=== PATIENT | female | born 1945 | race Caucasian/White ===

== ENCOUNTER 2021-07-07 11:20 | Outpatient (CLI) | payer MEDICARE | END 2021-07-07 11:21 | disposition home or self-care (01) | LOC: BICMAMMO 11:20 | PROVIDERS: ATTEND Internal Medicine | DX: Z12.31 Encounter for screening mammogram for malignant neoplasm of breast (principal); Z85.41 Personal history of malignant neoplasm of cervix uteri | CPT/HCPCS: 77063; 77067 ==

== ENCOUNTER 2022-08-18 10:58 | Outpatient (CLI) | payer MEDICARE | END 2022-08-18 10:59 | disposition home or self-care (01) | LOC: BICMAMMO 10:58 | PROVIDERS: ATTEND Internal Medicine | DX: Z12.31 Encounter for screening mammogram for malignant neoplasm of breast (principal); Z85.41 Personal history of malignant neoplasm of cervix uteri | CPT/HCPCS: 77063; 77067 ==

== ENCOUNTER 2023-03-21 00:11 | Inpatient (IN) | payer MEDICARE ==
[2023-03-21] MEDS ORDERED: Morphine 2 MG/ML VIAL ONE (01:05)
[2023-03-21] MEDS ORDERED: Ketorolac Tromethamine 30 MG/ML VIAL ONE (01:27)
[2023-03-21] MEDS ORDERED: Morphine 2 MG/ML VIAL SLOW IVP PRN (02:37)
[2023-03-21] MEDS ORDERED: Ondansetron PF 4 MG/2 ML Vial IVP PRN (02:37)
[2023-03-21] MEDS ORDERED: traMADol HCl 50 MG TAB PO PRN (02:38)
[2023-03-21] MEDS ORDERED: Ondansetron ODT 4 MG TAB PO PRN (02:38)
[2023-03-21] MEDS: traMADol HCl 50 MG TAB PO SCH ×4 (02:51→21:23)
[2023-03-21] MEDS: Acetaminophen 325 MG TAB PO SCH ×4 (02:54→21:15)
[2023-03-21] MEDS ORDERED: Dextrose 5% in Water 1,000 ML IV PRN (06:41)
[2023-03-21] MEDS ORDERED: Dextrose 50% Abboject 50 ML SYRINGE SLOW IVP PRN (06:41)
[2023-03-21] MEDS ORDERED: Glucagon 1 MG/ML KIT IM PRN (06:41)
[2023-03-21] MEDS ORDERED: Ipratropium/Albuterol 3 ML NEB NEB SCH (07:00)
[2023-03-21 07:13] LABS: Anion Gap 13 mmol/L (10-20); BUN (Urea Nitrogen) 17 mg/dL (9.8-20.1); Calc. Creatinine Clearance 0 mL/min (70-130); Calcium 8.4 mg/dL (7.8-10.44); Carbon Dioxide 24 mmol/L (23-31); Chloride 109 mmol/L (98-107); Estimated GFR 84; Glucose 107 mg/dL (83-110); Potassium 3.8 mmol/L (3.5-5.1); Sodium 142 mmol/L (136-145)
[2023-03-21] MEDS ORDERED: Sodium Chloride 0.9% 1,000 ML IV SCH (07:15)
[2023-03-21 08:20] VITALS: BMI 23.9
[2023-03-21] MEDS ORDERED: Gabapentin 100 MG CAP PO SCH (09:00)
[2023-03-21] MEDS: Senokot S 8.6-50 MG TAB PO SCH ×2 (09:18→20:14)
[2023-03-21] MEDS: Cyclobenzaprine 10 MG TAB PO PRN ×2 (12:07→21:22)
[2023-03-21] MEDS: Ipratropium/Albuterol 3 ML NEB NEB SCH ×2 (13:27→19:31)
[2023-03-21] MEDS: Gabapentin 100 MG CAP PO SCH (21:15)
[2023-03-21 23:54] LABS: Bacteria/HPF None Seen HPF (None Seen); Bilirubin Negative (Negative); Blood, Urine Negative (Negative); CAUTI Indications for Culture Alt mental st,lethar; Calcium Oxalate Crystals 3+ HPF (None Seen); Clarity Clear (Clear); Glucose, Urine (Dipstick) Normal (Negative); Ketone, Urine Negative (Negative); Leukocyte 75 Leu/uL (Negative); Nitrite Negative (Negative); Protein, Urine (Dipstick) 20 mg/dL (Neg-Trace); RBC/HPF 0-3 HPF (0-3); Specific Gravity, Urine 1.038 (1.002-1.036); Squamous Epithelial 0-3 HPF (0-3); Transitional Epithelial 0-3 HPF (None Seen); Urobilinogen Normal mg/dL (Less than 2); WBC/HPF 21-50 HPF (0-3); pH, Urine 5.5 (5.0-9.0)
[2023-03-21 23:57] LABS: Urine Culture Reflex Yes Yes
[2023-03-22] MEDS: Acetaminophen 325 MG TAB PO SCH ×4 (03:15→20:27)
[2023-03-22] MEDS: traMADol HCl 50 MG TAB PO SCH ×4 (03:16→20:27)
[2023-03-22] MEDS: Gabapentin 100 MG CAP PO SCH ×3 (05:18→20:28)
[2023-03-22] MEDS: Cyclobenzaprine 10 MG TAB PO PRN (05:18)
[2023-03-22 07:54] LABS: #Basophils 0.1 thou/uL (0.0-0.2); #Eosinphils 0.2 thou/uL (0.0-0.7); #Monocytes 0.5 thou/uL (0.11-0.59); #Neutrophils 3.4 thou/uL (1.40-6.50); %Basophils 1.1 % (0.0-1.0); %Lymphocytes 26.1 % (21.0-51.0); %Monocytes 9.5 % (0.0-10.0); %Neutrophils 59.9 % (42.0-75.0); Hematocrit 35.8 % (36.0-47.0); Hemoglobin 11.5 g/dL (12.0-16.0); Mean Corpuscular HGB CONC 32.1 g/dL (32.0-36.0); Mean Corpuscular Hemoglobin 31.3 pg (27.0-31.0); Mean Corpuscular Volume 97.3 fl (78.0-98.0); Mean Platelet Volume 9.6 fL (7.4-10.4); Platelet Count 207 10x3/uL (130-400); RBC Distribution Width 13.9 % (11.5-14.5); Red Blood Cell (RBC) Count 3.68 mill/uL (4.20-5.40); White Blood Cell (WBC) Count 5.6 10x3/uL (4.8-10.8)
[2023-03-22] MEDS: Ipratropium/Albuterol 3 ML NEB NEB SCH ×3 (07:55→18:45)
[2023-03-22] MEDS ORDERED: cefTRIAXone\\ROCEPHIN 1 GM in Sodium Chloride 0.9% 100 ML IVPB SCH (08:00)
[2023-03-22 08:04] LABS: Anion Gap 10 mmol/L (10-20); BUN (Urea Nitrogen) 19 mg/dL (9.8-20.1); Calc. Creatinine Clearance 65 mL/min (70-130); Carbon Dioxide 25 mmol/L (23-31); Chloride 107 mmol/L (98-107); Potassium 3.9 mmol/L (3.5-5.1); Sodium 138 mmol/L (136-145)
[2023-03-22 08:05] LABS: Calcium 8.6 mg/dL (7.8-10.44); Estimated GFR 89; Glucose 94 mg/dL (83-110)
[2023-03-22] MEDS: Senokot S 8.6-50 MG TAB PO SCH ×2 (08:53→20:27)
[2023-03-22] MEDS: Hydrochlorothiazide 25 MG TAB PO SCH (08:53)
[2023-03-22] MEDS: Sulfameth/Trimethoprim DS 800-160mg TAB PO SCH ×2 (11:26→20:28)
[2023-03-23] MEDS: Gabapentin 100 MG CAP PO SCH ×3 (04:36→22:01)
[2023-03-23] MEDS: Acetaminophen 325 MG TAB PO SCH ×4 (04:36→21:59)
[2023-03-23] MEDS: traMADol HCl 50 MG TAB PO SCH ×4 (04:37→22:00)
[2023-03-23] MEDS: Ipratropium/Albuterol 3 ML NEB NEB SCH ×4 (07:43→18:23)
[2023-03-23] MEDS: Senokot S 8.6-50 MG TAB PO SCH ×2 (09:47→22:00)
[2023-03-23] MEDS: Hydrochlorothiazide 25 MG TAB PO SCH (09:47)
[2023-03-23] MEDS: Sulfameth/Trimethoprim DS 800-160mg TAB PO SCH ×2 (09:48→22:01)
[2023-03-24] MEDS: traMADol HCl 50 MG TAB PO SCH ×2 (03:38→08:48)
[2023-03-24] MEDS: Acetaminophen 325 MG TAB PO SCH ×2 (03:39→08:49)
[2023-03-24] MEDS: Gabapentin 100 MG CAP PO SCH ×2 (05:52→14:17)
[2023-03-24] MEDS: Cyclobenzaprine 10 MG TAB PO PRN (05:55)
[2023-03-24] MEDS: Ipratropium/Albuterol 3 ML NEB NEB SCH (07:12)
[2023-03-24] MEDS: Sulfameth/Trimethoprim DS 800-160mg TAB PO SCH (08:48)
[2023-03-24] MEDS: Hydrochlorothiazide 25 MG TAB PO SCH (08:49)
[2023-03-24] MEDS: Senokot S 8.6-50 MG TAB PO SCH (08:49)
[2023-03-24 11:46] VITALS: BP 146/81; TEMP 97.7
[2023-03-24] MEDS ORDERED: Magnesium Citrate 300 ML BOT PO SCH (12:00)
== END 2023-03-24 14:44 | DRG 565 ==
LOC: ERS 00:11 → SJJU 01:21 → OBSVTOIN 06:41
PROVIDERS: ADMIT Specialist; ATTEND Specialist
DX: S42.115A Nondisplaced fracture of body of scapula, left shoulder, initial encounter for closed fracture (principal); S22.42XA Multiple fractures of ribs, left side, initial encounter for closed fracture; W18.30XA Fall on same level, unspecified, initial encounter; I10 Essential (primary) hypertension; Z90.710 Acquired absence of both cervix and uterus; Z98.890 Other specified postprocedural states; E78.00 Pure hypercholesterolemia, unspecified
CPT/HCPCS: 36415; 71045; 80048; 81001; 82607; 85025; 87086; 93005; 94640; 96374; 96375; G0378; J0696; J1650; J1885; J2272; J3490; J7050; J7620

== ENCOUNTER 2024-02-16 12:56 | Inpatient (IN) | payer MEDICARE ==
[2024-02-16 14:56] LABS: #Basophils Less than 0.03 10x3/uL (0.0-0.2); #Eosinphils Less than 0.03 10x3/uL (0.0-0.7); %Basophils 0.3 % (0.0-1.0); %Eosinophils 0.3 % (0.0-10.0); %Lymphocytes 17.7 % (21.0-51.0); %Monocytes 9.9 % (0.0-10.0); %Neutrophils 71.5 % (42.0-75.0); Hematocrit 44.2 % (36.0-47.0); Mean Corpuscular HGB CONC 33.9 g/dL (32.0-36.0); Mean Corpuscular Hemoglobin 31.8 pg (27.0-31.0); Mean Corpuscular Volume 93.8 fL (78.0-98.0); Mean Platelet Volume 9.2 fL (7.4-10.4); Platelet Count 198 10x3/uL (130-400); Red Blood Cell (RBC) Count 4.71 mill/uL (4.20-5.40)
[2024-02-16 15:12] LABS: ALT (SGPT) 29 U/L (8-55); AST (SGOT) 54 U/L (5-34); Albumin 3.5 g/dL (3.4-4.8); Alkaline Phosphatase 47 U/L (40-110); Anion Gap 13 mmol/L (10-20); BUN (Urea Nitrogen) 19 mg/dL (9.8-20.1); Bilirubin, Total 1.1 mg/dL (0.2-1.2); Calc. Creatinine Clearance 0 mL/min (70-130); Calcium 9.2 mg/dL (7.8-10.44); Carbon Dioxide 25 mmol/L (23-31); Chloride 104 mmol/L (98-107); Estimated GFR 80; Globulin 2.5 g/dL (2.4-3.5); Glucose 119 mg/dL (83-110); Lipase 13 U/L (8-78); Potassium 3.4 mmol/L (3.5-5.1); Sodium 139 mmol/L (136-145)
[2024-02-16 15:16] LABS: Troponin I 0.013 ng/mL (< 0.028)
[2024-02-16 19:41] LABS: Bilirubin Negative (Negative); Blood, Urine Negative (Negative); CAUTI Indications for Culture Immunosuppressed; Clarity Turbid (Clear); Glucose, Urine (Dipstick) Normal (Negative); Ketone, Urine 20 mg/dL (Negative); Leukocyte 250 Leu/uL (Negative); Nitrite Negative (Negative); Protein, Urine (Dipstick) 30 mg/dL (Neg-Trace); RBC/HPF 0-3 HPF (0-3); Specific Gravity, Urine 1.028 (1.002-1.036); Squamous Epithelial 0-3 HPF (0-3); Transitional Epithelial 0-3 HPF (None Seen)
[2024-02-16 20:52] LABS: Bacteria/HPF Rare-Few HPF (None Seen); Calcium Oxalate Crystals Rare HPF (None Seen)
[2024-02-16 20:54] LABS: WBC/HPF 21-50 HPF (0-3)
[2024-02-16 20:55] LABS: Urine Culture Reflex Yes Yes
[2024-02-16] MEDS ORDERED: cefTRIAXone (ROCEPHIN) 1 GM VIAL ONE (21:04)
[2024-02-16] MEDS ORDERED: Sodium Chloride 0.9% 100 ML ONE (21:05)
[2024-02-16 23:23] VITALS: BMI 24.3
[2024-02-17] MEDS ORDERED: Ondansetron PF 4 MG/2 ML Vial IVP PRN (00:33)
[2024-02-17] MEDS ORDERED: Potassium Bicarbonate/Cit Ac 20 MEQ TAB ONE (05:32)
[2024-02-17] MEDS: Sodium Chloride 0.9% 1,000 ML IV SCH (05:55)
[2024-02-17] MEDS: Potassium Bicarbonate/Cit Ac 20 MEQ TAB PO SCH (05:55)
[2024-02-17 08:18] LABS: #Basophils Less than 0.03 10x3/uL (0.0-0.2); %Basophils 0.4 % (0.0-1.0); %Eosinophils 1.6 % (0.0-10.0); %Lymphocytes 26.8 % (21.0-51.0); %Neutrophils 59.8 % (42.0-75.0); Hematocrit 39.3 % (36.0-47.0); Hemoglobin 13.1 g/dL (12.0-16.0); Mean Corpuscular HGB CONC 33.3 g/dL (32.0-36.0); Mean Corpuscular Hemoglobin 31.3 pg (27.0-31.0); Mean Platelet Volume 9.3 fL (7.4-10.4); Platelet Count 169 10x3/uL (130-400); RBC Distribution Width 13.2 % (11.5-14.5); Red Blood Cell (RBC) Count 4.18 mill/uL (4.20-5.40)
[2024-02-17 08:42] LABS: Anion Gap 7 mmol/L (10-20); BUN (Urea Nitrogen) 16 mg/dL (9.8-20.1); CK (CPK) 1405 U/L (29-168); Calc. Creatinine Clearance 69 mL/min (70-130); Calcium 8.4 mg/dL (7.8-10.44); Carbon Dioxide 26 mmol/L (23-31); Chloride 110 mmol/L (98-107); Estimated GFR 89; Glucose 99 mg/dL (83-110); Magnesium 1.9 mg/dL (1.6-2.6); Potassium 3.4 mmol/L (3.5-5.1); Sodium 140 mmol/L (136-145)
[2024-02-17] MEDS ORDERED: Gabapentin 100 MG CAP ONE (09:45)
[2024-02-17] MEDS: Gabapentin 100 MG CAP PO SCH ×2 (11:20→17:16)
[2024-02-17] MEDS ORDERED: Benzonatate 100 MG CAP PO PRN (19:25)
[2024-02-17] MEDS ORDERED: Benzocaine/Menthol 1 LOZ LOZ PO PRN (19:36)
[2024-02-17] MEDS: guaiFENesin/DM ER PO SCH (21:31)
[2024-02-17] MEDS: cefTRIAXone\\ROCEPHIN 1 GM in Sodium Chloride 0.9% 100 ML IVPB SCH (21:32)
[2024-02-18 05:04] LABS: #Basophils 0.03 10x3/uL (0.0-0.2); %Basophils 0.6 % (0.0-1.0); %Eosinophils 2.7 % (0.0-10.0); %Lymphocytes 38.2 % (21.0-51.0); %Monocytes 12.2 % (0.0-10.0); %Neutrophils 45.9 % (42.0-75.0); Hematocrit 37.4 % (36.0-47.0); Hemoglobin 12.4 g/dL (12.0-16.0); Mean Corpuscular HGB CONC 33.2 g/dL (32.0-36.0); Mean Corpuscular Hemoglobin 31.6 pg (27.0-31.0); Mean Corpuscular Volume 95.4 fL (78.0-98.0); Mean Platelet Volume 9.6 fL (7.4-10.4); Platelet Count 159 10x3/uL (130-400); RBC Distribution Width 13.2 % (11.5-14.5); Red Blood Cell (RBC) Count 3.92 mill/uL (4.20-5.40)
[2024-02-18 06:02] LABS: Anion Gap 9 mmol/L (10-20); BUN (Urea Nitrogen) 10 mg/dL (9.8-20.1); CK (CPK) 1053 U/L (29-168); Calc. Creatinine Clearance 66 mL/min (70-130); Calcium 8.3 mg/dL (7.8-10.44); Carbon Dioxide 28 mmol/L (23-31); Chloride 107 mmol/L (98-107); Estimated GFR 88; Glucose 98 mg/dL (83-110); Magnesium 1.8 mg/dL (1.6-2.6); Potassium 3.3 mmol/L (3.5-5.1); Sodium 141 mmol/L (136-145)
[2024-02-18] MEDS: Potassium Chloride 20 MEQ TAB PO SCH (09:23)
[2024-02-19 05:52] LABS: #Basophils Less than 0.03 10x3/uL (0.0-0.2); %Basophils 0.5 % (0.0-1.0); %Eosinophils 2.5 % (0.0-10.0); %Lymphocytes 36.6 % (21.0-51.0); %Monocytes 13.4 % (0.0-10.0); %Neutrophils 46.5 % (42.0-75.0); Hemoglobin 12.9 g/dL (12.0-16.0); Mean Corpuscular HGB CONC 33.9 g/dL (32.0-36.0); Mean Corpuscular Hemoglobin 31.2 pg (27.0-31.0); Mean Corpuscular Volume 91.8 fL (78.0-98.0); Mean Platelet Volume 9.4 fL (7.4-10.4); Platelet Count 158 10x3/uL (130-400); Red Blood Cell (RBC) Count 4.14 mill/uL (4.20-5.40)
[2024-02-19 06:18] LABS: Anion Gap 9 mmol/L (10-20); BUN (Urea Nitrogen) 9 mg/dL (9.8-20.1); Calc. Creatinine Clearance 76 mL/min (70-130); Calcium 8.5 mg/dL (7.8-10.44); Carbon Dioxide 27 mmol/L (23-31); Chloride 106 mmol/L (98-107); Estimated GFR 91; Glucose 111 mg/dL (83-110); Magnesium 1.9 mg/dL (1.6-2.6); Potassium 3.7 mmol/L (3.5-5.1); Sodium 138 mmol/L (136-145)
[2024-02-19] MEDS: Acetaminophen 325 MG TAB PO PRN (17:00)
[2024-02-19] MEDS ORDERED: HYDROcodone/Acetaminophen 5/325 mg Tablet PO PRN (17:32)
[2024-02-20] MEDS: FLU (Fluad Triv) TS24-25 (65UP)/MF59C/PF 45 MCG/0.5 ML Syringe IM ONE (16:20)
[2024-02-21 08:00] LABS: Anion Gap 13 mmol/L (10-20); BUN (Urea Nitrogen) 10 mg/dL (9.8-20.1); CK (CPK) 84 U/L (29-168); Calc. Creatinine Clearance 72 mL/min (70-130); Carbon Dioxide 24 mmol/L (23-31); Chloride 104 mmol/L (98-107); Estimated GFR 90; Glucose 93 mg/dL (83-110); Potassium 3.8 mmol/L (3.5-5.1); Sodium 137 mmol/L (136-145)
[2024-02-21 13:09] VITALS: BP 126/82; TEMP 96.3
== END 2024-02-21 12:54 | disposition home or self-care (01) | DRG 558 ==
LOC: ERS 12:56 → ERHOLD 21:33 → T4-B 02-17 13:37 → OBSVTOIN 02-17 15:13
PROVIDERS: ADMIT Internal Medicine; ATTEND Internal Medicine
DX: M62.82 Rhabdomyolysis (principal); N30.00 Acute cystitis without hematuria; A08.4 Viral intestinal infection, unspecified; K52.9 Noninfective gastroenteritis and colitis, unspecified; I10 Essential (primary) hypertension; G62.9 Polyneuropathy, unspecified; E86.0 Dehydration; Z90.710 Acquired absence of both cervix and uterus; E78.00 Pure hypercholesterolemia, unspecified
CPT/HCPCS: 36415; 71045; 80048; 80053; 81001; 82550; 83605; 83690; 83735; 84484; 85025; 87086; 87428; 90653; 93005; 96361; 96365; G0378; J0696; J7030